=== PATIENT | female | born 1965 | race Caucasian/White ===

== ENCOUNTER 2023-09-20 15:42 | Outpatient (CLI) | payer MEDICAID, SELFPAY ==
--- NOTE | 2023-09-20 14:45 | DI.RAD_ITS ---
Exam(s) XR PELVIS AP EXAM: XR PELVIS AP CLINICAL HISTORY: right hip pain. TECHNIQUE: 2D digital imaging was performed. COMPARISON: CR XR HIP RT MIN 2V AND PELVIS from 02/01/2023 FINDINGS: BONES: No acute fracture is present. No bony destructive lesion is seen. JOINTS: No dislocation present. There advanced degenerative changes seen at the right hip with joint space narrowing and osteophytes. Subchondral sclerosis and cysts are also seen at the right hip. Mo derate degenerative changes are seen in the left hip. The sacroiliac joints and symphysis pubis are unremarkable. SOFT TISSUE: Normal. IMPRESSION: Advanced degenerative changes of the right hip. DATA REPOSITORY: RADIATION DOSE DELIVERED:
== END 2023-09-20 15:43 | disposition home or self-care (01) ==
LOC: DIORS 15:42
PROVIDERS: PCP Family Medicine; Visit Provider Physician Assistant
DX: M16.11 Unilateral primary osteoarthritis, right hip (principal)
CPT/HCPCS: 72170

== ENCOUNTER 2023-10-14 01:21 | Outpatient (CLI) | payer MEDICAID, SELFPAY ==
[2023-10-14 15:15] LABS: HCT 41.2 % (36.0-46.0); HGB 14.3 g/dL (11.2-15.7); MCH 32.4 pg (27.0-33.0); MCHC 34.7 % (32.0-36.0); MCV 93 fL (80-95); MPV 10.6 fL (8.0-11.0); Platelet Count 366 10^3/uL (130-400); RBC 4.41 10^6/uL (3.93-5.22); RDW 12.4 % (11.7-14.6); RDW-SD 42.7 fL; WBC 8.77 10^3/uL (4.4-10.8)
[2023-10-14 15:18] LABS: Anion Gap 9.6 mmol/L (3-11); BUN 11 mg/dL (7-18); CO2 28.4 mmol/L (21.0-32.0); CREATININE 0.9 mg/dL (0.55-1.02); Calcium 9.9 mg/dL (8.5-10.1); Chloride 104 mmol/L (98-107); Estimated GFR 73.64 (mL/min/1.73m2); Glucose 100 mg/dL (74-106); Potassium 4.2 mmol/L (3.5-5.1); Sodium 142 mmol/L (136-145)
== END 2023-10-14 01:22 | disposition home or self-care (01) ==
LOC: LBO 01:21
PROVIDERS: PCP Family Medicine; Visit Provider Student in an Organized Health Care Education/Training Program
DX: Z01.818 Encounter for other preprocedural examination
CPT/HCPCS: 36415; 80048; 85027

== ENCOUNTER 2023-10-27 05:56 | Day surgery (SDC) | payer MEDICAID, SELFPAY ==
[2023-10-27] VITALS (9 sets, daily range): BP systolic 68–146; BP diastolic 43–82; PULSE 60–77; RESP 16–28; TEMP 36.3–36.6; O2SAT 94–99; BMI 30.9
--- NOTE | 2023-10-27 06:28 | ANES.PREOP_ITS ---
General Info Date of Service Date Performed: 10/27/23 Height: 5 ft 9 in Weight: 95.1 kg Body Mass Index (BMI): 30.9 Surgical Procedure: Operation Date: 10/27/23 07:50 Proposed Procedure Side Surgeon p Hip Total Hip Anterior Right Ja Paige MD s Knee Injection- Depo Medrol Right Ja Paige MD Meds Allergies and Home Medications Allergies Allergy/AdvReac Type Severity Reaction Status Date / Time Penicillins Allergy Mild Itching Verified 10/27/23 06:16 Home Medication Medication Instructions Recorded albuterol sulfate 90 mcg/actuation 1 puff inhalation Q6H PRN 08/04/23 aerosol inhaler (Ventolin HFA) atorvastatin 40 mg tablet 40 mg PO DAILY 08/04/23 melatonin 10 mg tablet 10 mg PO HS PRN 08/04/23 oxybutynin chloride 5 mg tablet 5 mg PO DAILY 08/04/23 trazodone 100 mg tablet 200 mg PO QHS PRN 09/20/23 Current Visit Medications: Current Medications Generic Name Dose Route Start Last Admin Trade Name Freq PRN Reason Stop Dose Admin Acetaminophen 1,000 mg 10/27/23 06:00 Acetaminophen 500 Mg Tab PO 11/26/23 05:59 PREOP SHIRLEY Celecoxib 400 mg 10/27/23 06:00 Celecoxib 200 Mg Cap PO 11/26/23 05:59 PREOP SHIRLEY Tranexamic Acid 1,000 mg/ 60 mls @ 360 mls/hr 10/27/23 06:00 Sodium Chloride IV 11/26/23 05:59 PREOP SHIRLEY Ringer's Solution 1,000 mls @ 80 mls/hr 10/27/23 06:00 IV 11/25/23 23:59 INFUSION SHIRLEY Cefazolin Sodium/Dextrose 2 gm in 50 mls @ 100 mls/hr 10/27/23 06:00 Ancef Duplex IVPB 10/27/23 16:00 PREOP SHIRLEY IV Miscellaneous Supplies 1 each 10/27/23 06:00 Iv Access IV 11/25/23 23:59 DIRECTED SHIRLEY Sodium Chloride 0 ml 10/27/23 06:00 Normal Saline Flush 10 Ml Syr IV 11/25/23 23:59 PRN PRN Sodium Chloride 0 ml 10/27/23 06:00 Normal Saline 10 Ml Vial IJ 11/25/23 23:59 DIRECTED PRN Sterile Water 0 ml 10/27/23 06:00 Water,Injection,Sterile 10 Ml Vial IJ 11/25/23 23:59 DIRECTED PRN PFSH Active Problems Active Problems: Problem Status Onset Code Smoker F17.200 PTSD (post-traumatic stress disorder) F43.10 Prediabetes R73.03 HLD (hyperlipidemia) E78.5 WHIT (generalized anxiety disorder) F41.1 Degenerative joint disease of right knee M17.11 Degenerative joint disease of right hip M16.11 Medical History Medical History (Updated 10/25/23 @ 11:40 by Matheus Stanley) Hx of fracture of leg History of echocardiogram 06/02/19 Stress incontinence in female Seizure It's a weird warming/cooling sensation I'm blinking but I'm blind, and I get this warm sensation and i get this shaking sensation, and then it goes away, I'm completely coherent. Last one was over a year ago Major depressive disorder Chronic low back pain Cataract Surgical History Surgical History (Updated 10/25/23 @ 11:40 by Matheus Stanley) History of bladder surgery H/O cervical polypectomy 11/18/18 History of cataract surgery dos 05/27/2000 Tobacco Smoking/Tobacco Use Status: Current every day Tobacco Type: cigarettes Smoking packs per day: 0.75 Smoking cigarettes per day: 15.0 and e-cigarettes Alcohol Alcohol Intake: never Substance Use Substance use: Daily Substance use type: marijuana Vital Signs and Lab Results Vital Signs Most Recent Vital Signs in EMR: Most Recent Vital Signs Temp Pulse Resp BP Pulse Ox 36.6 C 74 16 146/81 H 99 10/27/23 06:18 10/27/23 06:18 10/27/23 06:18 10/27/23 06:18 10/27/23 06:18 Lab Results Blood Type / Crossmatch: No Data to Display Complete Blood Count: White Blood Count 8.77 10^3/uL (4.4-10.8) 10/14/23 14:54 Red Blood Count 4.41 10^6/uL (3.93-5.22) 10/14/23 14:54 Hemoglobin 14.3 g/dL (11.2-15.7) 10/14/23 14:54 Hematocrit 41.2 % (36.0-46.0) 10/14/23 14:54 Platelet Count 366 10^3/uL (130-400) 10/14/23 14:54 Complete Metabolic Panel: Sodium 142 mmol/L (136-145) 10/14/23 14:54 Potassium 4.2 mmol/L (3.5-5.1) 10/14/23 14:54 Chloride 104 mmol/L (98-107) 10/14/23 14:54 Carbon Dioxide 28.4 mmol/L (21.0-32.0) 10/14/23 14:54 BUN 11 mg/dL (7-18) 10/14/23 14:54 Creatinine 0.9 mg/dL (0.55-1.02) 10/14/23 14:54 Est GFR (CKD-EPI 2020) 73.64 (mL/min/1.73m2) 10/14/23 14:54 Calcium 9.9 mg/dL (8.5-10.1) 10/14/23 14:54 Glucose 100 mg/dL (74-106) 10/14/23 14:54 Liver Function Panel: No Data to Display Coagulation Panel: No Data to Display Cardiac Panel: No Data to Display Arterial Blood Gas: No Data to Display Venous Blood Gas: No Data to Display Pancreas Panel: No Data to Display Thyroid Panel: No Data to Display Infectious Disease: No Data to Display Blood Cultures: No Data to Display Toxicology Panel: No Data to Display Imaging and Studies Imaging and Studies Study information below may be from another EMR and interpreted by another provider. Please see original notes in EMR for more complete details. Echocardiogram Summary: echo 2019 mild LVH, EF 65-70%, some diastolic dysfunct ion, trace MR/TR. see chart for results. Anesthesia Assessment and Plan Anesthesia History Personal History: PONV Family History: No Family History of Anesthesia Complications Exercise Tolerance Exercise Tolerance: Metabolic Equivalents>4 Pertinent Negatives Pertinent Negatives: No Symptoms of GERD, No Major Cardiovascular Symptoms or Complaints, No Major Pulmonary Symptoms or Complaints and No History of CVA/TIA Cardiac & Pulmonary Exam Cardiac Exam: Normal S1/S2 Heart Sounds Pulmonary Exam: Clear Bilateral Breath Sounds Implantable Cardiac Device Does patient have a Pacemaker or an ICD?: No Airway Exam Known Difficult Airway: No Mallampati Class: 2 Mouth Opening: Normal (> 3cm) Thyromental Distance: Less than 3 cm Neck Range of Motion: Full ROM Neck Circumference: Normal Teeth Condition: Normal Dentition ASA Classification ASA Score: ASA 2 Emergency Case?: No NPO Status NPO Status: NPO Clears >2 hours, Solids >8 hours Anesthesia Plan Resuscitation Status: Full Code Anesthesia Technique: Spinal Anesthesia Airway Planned: Natural Airway Monitors Used: Standard Monitors
[2023-10-27] MEDS: Acetaminophen 500 MG TAB 1000 MG PO (06:58)
[2023-10-27] MEDS: Celecoxib 200 MG CAP 400 MG PO (06:58)
[2023-10-27] MEDS: Lactated Ringers 1,000 ML 80 ML IV (06:58)
--- NOTE | 2023-10-27 07:24 | W.PM.DS.N ---
Date of service: 10/27/23 Time of Service: 07:24 DS: Diagnosis Discharge Diagnosis (1) Degenerative joint disease of right knee: Status: Chronic (2) Degenerative joint disease of right hip: Status: Chronic Discharge Plan Disposition Patient Disposition: Home Condition: Good Discharge Details Reason For Visit: R THR, R Knee Injection Attending Provider: Ja Paige Primary Care Provider: GREGG RESTREPO Home Meds and New Rx's Prescriptions: New celecoxib 200 mg capsule 200 mg PO BID Qty: 60 0RF aspirin 81 mg tablet,delayed release (DR/EC) 81 mg PO BID Qty: 60 0RF acetaminophen 500 mg tablet 1,000 mg PO TID Qty: 90 3RF pantoprazole 40 mg tablet,delayed release (DR/EC) 40 mg PO DAILY Qty: 30 0RF dexamethasone 4 mg tablet 4 mg PO DAILY Qty: 2 0RF oxycodone 5 mg tablet 5 mg PO Q4H MDD 6 tabs PRN (Reason: pain) Qty: 20 0RF Continued melatonin 10 mg tablet 10 mg PO HS PRN oxybutynin chloride 5 mg tablet 5 mg PO DAILY atorvastatin 40 mg tablet 40 mg PO DAILY albuterol sulfate [Ventolin HFA] 90 mcg/actuation HFA aerosol inhaler 1 puff inhalation Q6H PRN trazodone 100 mg tablet 200 mg PO QHS PRN Discharge Instructions Additional Instructions: Total Hip Discharge Instructions Activity: The most important activity is to walk. You should try to take short walks a few times a day. You have no restrictions on movement or positioning, but do not try to force what you do. You will find some stiffness and weakness with hip flexion (lifting your knee). Do not try to strengthen this too early, continue to practice walking and stairs and this will come. - Outpatient physical therapy can be helpful to help return you to a normal gait and improve your flexibility and strength. This can start around 2 weeks. For some patients, it?s not necessary. Usually this is determined at the time of discharge or at the first post-operative visit. - You should wear the SEVEN hose on both legs for 2 weeks. Dressing: Keep the surgical dressing in place for at least one week. After the first week it may be removed and replace with light gauze and tape or nothing. It may get wet after 3 days but avoid soaking the dressing. If it gets wet, just lightly pat dry. It is important to always keep some gauze between skin folds, especially when you are sitting. Spend some time with the wound exposed when you are lying flat as the incision does wrinkle onto itself. Medications: - You should take Tylenol and an anti-inflammatory Celebrex as your primary pain control medications. If the Celebrex is too expensive or not covered, please call the office for another alternative (Advil/Ibuprofen or Naproxen/Aleve). - You have been prescribed a stronger pain medication Oxycodone for breakthrough pain, take as needed as prescribed. - You have also been prescribed a stomach acid reduction agent Pantoprozole to help reduce stomach acid and reflux. - You have also been prescribed Decadron to help with post-operative nausea and pain. You will take this for two days starting tomorrow. - You will be taking Aspirin 81mg twice a day for DVT prevention unless instructed otherwise. - If you have constipation you should take Colace or Miralax (both [id number]). It takes most people 3-4 days to have a bowel movement. Follow-up: 2 weeks If you have any acute concerns or questions, please do not hesitate to contact the office at [phone]. You may contact Dr. Paige with any questions after hours through the hospital at [phone] or on his cell phone at [phone]. Referrals: Ja Paige MD [ [facility] STAFF PHYSICIAN] - Equipment/Supplies: Walker Activity:: Activity as Tolerated Shower/Bathe:: 72 hours Diet:: As Tolerated DS: Summary Quality:SDOH Health Related Social Needs: No Data to Display DS: Data Vitals/I&O Vitals and I&O: Vital Signs Temperature 97.9 F 10/27/23 06:18 Pulse 74 10/27/23 06:18 Pulse Rhythm Regular 10/27/23 06:18 Respiratory Rate 16 10/27/23 06:18 Blood Pressure 146/81 H 10/27/23 06:18 Pulse Oximetry 99 10/27/23 06:18 Oxygen Delivery Method Room Air 10/27/23 06:18 Oxygen Flow Rate 0 10/27/23 06:18 Pain Level 1 10/27/23 06:18 Intake & Output 10/26/23 10/27/23 10/27/23 18:59 06:59 18:59 Weight 209 lb 10.554 oz PFSH All Active Problems (Updated 10/27/23 @ 07:25 by MELA Sepulveda) Smoker (Acute) PTSD (post-traumatic stress disorder) (Acute) Prediabetes (Acute) HLD (hyperlipidemia) (Acute) WHIT (generalized anxiety disorder) (Acute) Degenerative joint disease of right knee (Chronic) Injection: 10/27/2023 Degenerative joint disease of right hip (Chronic) Medical History (Updated 10/27/23 @ 07:25 by MELA Sepulveda) Hx of fracture of leg History of echocardiogram 06/02/19 Stress incontinence in female Seizure It's a weird warming/cooling sensation I'm blinking but I'm blind, and I get this warm sensation and i get this shaking sensation, and then it goes away, I'm completely coherent. Last one was over a year ago Major depressive disorder Chronic low back pain Cataract Surgical History (Updated 10/25/23 @ 11:40 by Matheus Stanley) History of bladder surgery H/O cervical polypectomy 11/18/18 History of cataract surgery dos 05/27/2000 Social History (Updated 10/14/23 @ 15:45 by MELA Sepulveda) Smoking/Tobacco Use Status: Current every day Tobacco Type: cigarettes Smoking packs per day: 0.75 Smoking cigarettes per day: 15.0 and e-cigarettes Smoking risk assessment performed?: Yes Alcohol Intake: never Drug use: Daily Substance use type: marijuana Housing: other Do you feel safe at home: Yes Additional Social history: lives alone
--- NOTE | 2023-10-27 07:27 | W.PM.DSUDISC ---
Date of service: 10/27/23 Time of Service: 07:28 Discharge Plan Disposition Patient Disposition: Home Condition: Good Discharge Details Reason For Visit: R THR, R Knee Injection Attending Provider: Ja Paige Primary Care Provider: GREGG RESTREPO Home Meds and New Rx's Prescriptions: New celecoxib 200 mg capsule 200 mg PO BID Qty: 60 0RF aspirin 81 mg tablet,delayed release (DR/EC) 81 mg PO BID Qty: 60 0RF acetaminophen 500 mg tablet 1,000 mg PO TID Qty: 90 3RF pantoprazole 40 mg tablet,delayed release (DR/EC) 40 mg PO DAILY Qty: 30 0RF dexamethasone 4 mg tablet 4 mg PO DAILY Qty: 2 0RF oxycodone 5 mg tablet 5 mg PO Q4H MDD 6 tabs PRN (Reason: pain) Qty: 20 0RF Continued melatonin 10 mg tablet 10 mg PO HS PRN oxybutynin chloride 5 mg tablet 5 mg PO DAILY atorvastatin 40 mg tablet 40 mg PO DAILY albuterol sulfate [Ventolin HFA] 90 mcg/actuation HFA aerosol inhaler 1 puff inhalation Q6H PRN trazodone 100 mg tablet 200 mg PO QHS PRN Discharge Instructions Additional Instructions: Total Hip Discharge Instructions Activity: The most important activity is to walk. You should try to take short walks a few times a day. You have no restrictions on movement or positioning, but do not try to force what you do. You will find some stiffness and weakness with hip flexion (lifting your knee). Do not try to strengthen this too early, continue to practice walking and stairs and this will come. - Outpatient physical therapy can be helpful to help return you to a normal gait and improve your flexibility and strength. This can start around 2 weeks. For some patients, it?s not necessary. Usually this is determined at the time of discharge or at the first post-operative visit. - You should wear the SEVEN hose on both legs for 2 weeks. Dressing: Keep the surgical dressing in place for at least one week. After the first week it may be removed and replace with light gauze and tape or nothing. It may get wet after 3 days but avoid soaking the dressing. If it gets wet, just lightly pat dry. It is important to always keep some gauze between skin folds, especially when you are sitting. Spend some time with the wound exposed when you are lying flat as the incision does wrinkle onto itself. Medications: - You should take Tylenol and an anti-inflammatory Celebrex as your primary pain control medications. If the Celebrex is too expensive or not covered, please call the office for another alternative (Advil/Ibuprofen or Naproxen/Aleve). - You have been prescribed a stronger pain medication Oxycodone for breakthrough pain, take as needed as prescribed. - You have also been prescribed a stomach acid reduction agent Pantoprozole to help reduce stomach acid and reflux. - You have also been prescribed Decadron to help with post-operative nausea and pain. You will take this for two days starting tomorrow. - You will be taking Aspirin 81mg twice a day for DVT prevention unless instructed otherwise. - If you have constipation you should take Colace or Miralax (both [id number]-vigpexm). It takes most people 3-4 days to have a bowel movement. Follow-up: 2 weeks If you have any acute concerns or questions, please do not hesitate to contact the office at [phone]. You may contact Dr. Paige with any questions after hours through the hospital at [phone] or on his cell phone at [phone]. Referrals: Ja Paige MD [ [facility] STAFF PHYSICIAN] - Equipment/Supplies: Walker Activity:: Activity as Tolerated Shower/Bathe:: 72 hours Diet:: As Tolerated DS: Diagnosis Discharge Diagnosis (1) Degenerative joint disease of right knee: Status: Chronic (2) Degenerative joint disease of right hip: Status: Chronic
[2023-10-27] MEDS: ceFAZolin 2 GM/50 ML BAG IVPB (09:45)
[2023-10-27] MEDS: methylPREDNISolone ACETATE 80 MG/ML VIAL (10:02)
[2023-10-27] MEDS: Bupivacaine 0.25% Pres-Free 10 ML VIAL (10:02)
--- NOTE | 2023-10-27 11:05 | DI.RAD_ITS ---
Exam(s) XR HIP RT IN OR EXAM: XR HIP RT IN OR CLINICAL HISTORY: Degenerative joint disease of right hip. TECHNIQUE: 2D and realtime digital imaging was performed. COMPARISON: CR XR PELVIS AP from 09/20/2023 FINDINGS: Hard copy image shows placement a hip prosthesis. The alignment appears satisfactory. Please see procedure note for details. Fluoro time: 26.3seconds RADIATION DOSE DELIVERED: Ka,r=3.93 mGy
--- NOTE | 2023-10-27 11:09 | W.PM.OP ---
Date of service: 10/27/23 Time of Service: 10:15 Operative Note Operative Note DATE OF PROCEDURE: 10/27/23 PRE-OP DIAGNOSIS: Right Hip Arthritis Right Knee Arthritis POST-OP DIAGNOSIS: same PROCEDURE: Right Anterior Total Hip Arthroplasty with Intraoperative Navigation Right Knee Intra-articular Injection SURGEON: Ja Paige SHIPPING CHECKER: Luisito Purvis ANESTHESIA TYPE: Spinal Refer to Anesthesia Record ESTIMATED BLOOD LOSS: 100 PATHOLOGY: none sent TOURNIQUET TIME: 0 COMPLICATIONS: None Patient was transported to: PACU Patient's condition: stable Implants: 1. Depuy Islip Acetabular Component, 48mm 2. Depuy Acetabular Liner, [id number] 3. Depuy Actis Standard Collared Femoral Stem, Size 6 4. Depuy Altrx Ceramic Femoral Head, Size 32+5mm Indications: I have seen Chela in clinic for symptoms of hip arthritis, confirmed with radiographic findings. She has exhausted nonoperative methods and was having significant limitations in daily function and desired better function and less pain. I discussed the technical details of a hip replacement. I explained the risks of the procedure to include, but not limited to, bleeding, infection, pain, stiffness, fracture, damage to nerves and vessels, damage to muscles and tendons, loosening, instability, leg length inequality, need for repeat procedure, blood clot and cardiopulmonary demise. Despite these risks, Chela elected to proceed. Findings: There was significant signs of arthritis throughout the hip. Procedure Description: Chela was greeted in the preoperative holding area where the correct side was identified and marked. The consent was reviewed with the patient and signed. The history and physical was updated. All questions were answered. She was taken back to the operating room. A spinal anesthestic was then administered. The feet were wrapped with cast padding and Coban and then placed into the boot liners and then into the boots. Care was taken to protect the skin and make sure the heels were fully down and the boots were stable. The patient was then positioned onto the HANA table. Both legs were held in a neutral position. SCDs were applied. The patient was then slid down onto a peroneal post. Prophylactic antibiotics in the form of Cefazolin were administered. 1g of Tranxemic Acid was given intravenously within 30 minutes of incision. A timeout to confirm correct identity, side and site, procedure, allergies, anesthesia, and medical concerns was performed. The right knee was then addressed first. The superolateral soft spot was identified and marked on the skin. The skin was prepped with alcohol. I then injected 8 cc of 0.25% bupivacaine along with 80 mg of Depo-Medrol into the knee without difficulty. A Band-Aid was applied. Then, the right leg was then prepped with Chloraprep and draped in a standard fashion. A second prep with Chloraprep was performed prior to placement of a shower-curtain type drape with Iodine impregnated skin protection. An obliquely oriented incision was made starting lateral to the ASIS and running distal over the Tensor Fascia Zoë (TFL) muscle belly toward the fibular head, approximately 10cm. The skin and soft tissue was dissected sharply, through Larissa?s fascia, and to the fascia of the TFL. With the fascia and superior border of the IT band identified, the fascia was incised with a new knife just above any perforators from the IT band. The TFL muscle belly was bluntly dissected away from the fascia and moved laterally. The fat between TFL and rectus was identified to ensure the dissection was not within the TFL. Blunt dissection created space between abductors and the capsule and retractor was placed over the lateral femoral neck. The fibers of the rectus femoris tendon were identified and these were freed from the anterior capsule. A second cobra retractor was placed around the medial femoral neck. The TFL was further retracted laterally to show the deep fascia. Careful dissection through this layer identified three main crossing vessels of the lateral femoral circumflex. These were cauterized in multiple locations and then cut without any noticeable bleeding. The TFL was further released bluntly from the deep fascia to expose anterior hip capsule and fat The Izaiah orthopaedic retractor was then placed beneath the TFL and against sartorius and medial soft tissues to protect and retract the soft tissues. A T-capsulotomy was then performed starting at the superior lateral acetabulum and moving distally to the intertrochanteric ridge. These capsular flaps were tagged with a No. 1 Ethibond and elevated from within. The capsular flaps were released to the shoulder of the lateral neck and to the lesser trochanter to give excellent visualization of the proximal femur. A neck osteotomy was performed using an oscillating saw based on preoperative templates. This cut started in the shoulder and of the lateral neck and exited medially. The saw was at all times directed medially to avoid injury to the greater trochanter. Gross traction was applied to the leg and the osteotomy opened. The femoral head was removed with a corkscrew, making sure to protect the TFL on its exit. Traction was released after head removal. This was measured on the back table to determine the starting reamer size. Portions of the rectus obscuring visualization were minimally elevated off the superior acetabulum. An anterior retractor was placed over the anterior wall between capsule and labrum and attached to the Gripper retraction system. The femur was rotated to 90 degrees and medial capsule was fully released until the lesser trochanter was palpable and visible; the femur was returned to 30 degrees. A posterior retractor was placed similarly between capsule and labrum. This provided excellent visualization. The contents of the cotyloid fossa were removed with electrocautery and the labrum was removed with a knife. There was a notable floor osteophyte. There was significant chondromalacia of the superior acetabulum. Acetabular reaming began with a 44mm reamer. This first reaming was directed anterior to posterior and medial to get down to the true floor. This was inspected and reamed until the true floor was reached. The anterior retractor was then released and entry and exit was provided by traction on the capsular flaps. I then reamed sequentially up to a 48mm reamer where good fit was obtained. The larger reamers were oriented based on anatomical reference of the anterior and lateral arrington to ensure proper abduction and anteversion. Positioning and size was confirmed with the fluoroscopy. A 48mm Depuy Islip acetabular component was selected. The acetabulum was reamed around the periphery with the selected acetabular size to prevent a rim fit. The deep tissues were irrigated. The acetabular component was then impacted in a position of about 40-45 degrees of abduction and 15-20 degrees of anteversion, using the patient?s anatomy as the ultimate landmark. Fluoroscopy was used to confirm this. There was excellent benzol operator of the acetabular component and the inserting handle was removed. The acetabular liner, Depuy [id number] polyethylene liner, was inserted and lined up with the tines of the acetabular component. There was no soft tissue interposition. The liner was then impacted into position and confirmed to be well-seated. A portion of the dora-articular cocktail was then injected around the acetabulum into the capsule and periosteum. This cocktail consisted of 123mg of Ropivacaine, 0.25mg of Epinephrine, 0.04mg of Clonidine, and 15mg of Ketorolac, diluted to 50cc. The leg was rotated to 120 degrees. Any remaining medial capsule was released until the lesser trochanter was easily palpable. A retractor was placed medially. The lateral capsule was further released into the shoulder to allow access to the greater trochanter. A Renteria retractor was placed over the greater trochanter which allowed the trochanter to flip in front of the capsule for excellent exposure. The leg was brought down into maximal extension and 20 degrees of adduction while ensuring there was no impingement on the acetabulum. Any remnant capsule within the trochanter was released. Piriformis and obturator externis were identified and protected. There was excellent access to the proximal femur. The lateral neck remnant was removed with a rongeur. A blunt canal probe was used to identify the canal and trajectory for later broaching. A box osteotome initiated the broach course. A small curved rasp and a curved curette were used to work laterally. Broaching then began with a starter Actis broach. This was inserted manually around the trochanter and into the canal before mallet blows. The broach was seated to the neck cut level based on the neck cut and the preoperative template. Sequential broaching was continued with the WishLinkse pneumatic broaching device until a tight fit was obtained with good rotational control of the femur. A trial standard neck was inserted along with a +1 trial head. The leg was brought out of extension and adduction and then reduced with traction and internal rotation. The leg was stable anteriorly in a position of 30 degrees of extension and 90 degrees of external rotation. Fluoroscopy was used to ensure there was no fracture and the stem was seated well. Leg lengths were checked with an AP pelvis and pelvic reference points. [employer] navigation system was used to confirm appropriate positioning and leg length and offset. Once content with the desired offset and leg lengths, the leg was brought back into extension, external rotation and adduction. The periosteum and surrounding tissue was injected with remaining portion of the dora-articular cocktail. The proximal femur was irrigated as well as the deep tissues. The 3CIuy PurposeEnergyis standard collared stem, size 6, was then manually inserted into the proximal femur making sure to control rotation. It was then malleted into position with light blows, giving breaks to allow bone expansion and decrease risk of fracture. The selected Depuy Altrx Ceramic Head, size 32+5mm, was then placed onto the clean and dry trunnion and secured with impaction onto the tapered fit. The leg was brought back out of extension and adduction and reduced with traction and internal rotation. Stability was confirmed with no shuck at 90 degrees of external rotation and 30 degrees of extension. No impingement through range of motion arc. Final x-ray images were obtained with fluoroscopy to confirm adequate positioning and no intraoperative fracture. The deep tissues were thoroughly irrigated with Surgiphor, betadine solution. This was allowed to sit in the wound for 3 minutes before being thoroughly irrigated out with normal saline. The capsule was then reapproximated with the previously placed Ethibond sutures. The TFL fascia was finally closed with a No. 2 Stratafix, barbed suture. Deep tissues were then reapproximated with 0 Vicryl and a running 2-0 Vicryl. The skin was closed with a running 4-0 Monocryl in a subcuticular fashion. This was reinforced with skin glue. A Mepilex silver dressing was applied. At the end of the case, all counts were correct. Chela was transferred to the hospital bed without difficulty and suffering no apparent complication. Chela has a good prognosis. Physical therapy will start today and without restrictions, weight-bearing as tolerated. Aspirin 81mg BID will be used for DVT prophylaxis.
[2023-10-27] MEDS: fentaNYL 100 MCG/2 ML VIAL IVP ×2 (11:54→12:01)
--- NOTE | 2023-10-27 12:55 | PT.INIE ---
PT Notes Visit Reasons: R THR, R Knee Injection Physical Therapy Day Surgery Initial Evaluation Date: 10/27/2023 Referring Doctor: MELA Sepulveda PT Orders: PT CONSULT: S/P ortho Surgery Precautions: WBAT on the R LE with AD. Patient Profile/Admitting Diagnosis: Chela is a 58-year-old female with degenerative joint disease of the right hip and status post right total anterior hip arthroplasty on postoperative day 0 PMHX: Medical History (Updated 09/22/23 @ 13:32 by Sharmaine Menezes RN) History of echocardiogram 06/02/19Stress incontinence in female Seizure Major depressive disorder Chronic low back pain Cataract Surgical History (Updated 09/22/23 @ 13:32 by Sharmaine Menezes RN) H/O cervical polypectomy 11/18/18 History of cataract surgery dos 05/27/2000 Social History/Home Situation: Lives alone in a private in a private home with 3 steps to enter. Daughter will provide support as she recovers. Works as a [employer]. Independent aspects of ADLs prior to surgery. Equipment Owned/DME: [employer] FWW, patient given a new FWW for safe use at home Subjective: Pleasant and highly motivated. Reported stinging sensation about 3-4/10 on the right front of her hip and thigh increased with movement but minimally limited her ability to complete mobility assessment. Denied headache, chest pain, and lightheadedness throughout session. Objective: General Observation: Mepilex Ag over surgical incision. TDS to be legs. Mental Status: A and O x 4 as above Pain: above ROM: Right Lower Extremity: Hip flexion WFL. Hip abduction WFL. Knee flexion WFL. Ankle dorsiflexion WFL. Ankle plantarflexion WFL. Left Lower Extremity: Hip flexion WFL. Hip abduction WFL. Knee flexion WFL. Ankle dorsiflexion WFL. Ankle plantarflexion WFL. Strength: Right Lower Extremity: Hip flexors 5/5. Hip abductors 5/5. Knee flexors 5/5. Knee extensors 5/5. Ankle dorsiflexors 5/5. Ankle plantarflexors 5/5. Left Lower Extremity:Hip flexors 4/5. Hip abductors 4/5. Knee flexors 5/5. Knee extensors 4/5. Ankle dorsiflexors 5/5. Ankle plantarflexors 5/5. Sensation: Intact tested pain and light pressure in BLE Bed Mobility/Transfers: Minimal cueing provided for use of B hands as needed for support, movement sequence, AD management, and posture to reduce fall risk and minimize pain report Supine to sit standby assist Sit to stand standby assist with FWW Stand to sit stand bya assist Bed to chair stand by assist Gait: Facilitated safe and correct performance of level surface ambulation covering a distance of 150 feet using front wheeled walker with reciprocal step through heel-toe gait pattern requiring only standby assist with minimal cueing provided for movement sequence, AD management, and posture to reduce fall risk and minimize pain report. Stairs: Guided patient with safe and correct negotiation of 6 x 4 inch steps and 4 x 6 inch steps while holding onto bilateral rails with step to gait pattern with minimal verbal cueing provided for increased bending at the right hip and knee during each ascent, movement sequence, and posture to reduce fall risk and minimize pain report. Balance: Static Sitting: Normal Dynamic Sitting: Normal Static Standing: Fair Dynamic Standing: fair Special Tests: Mobility Limitations Standardized Measure [facility] 6 clicks Basic Mobility Inpatient Short Form: Raw Score: 24 CMS Score: 0% deficit Informed Consent/Education: Patient instructed in purpose of PT consult. Packet containing KATEY exercise protocol has been given to patient. Education and training on initial set of exercises that can be done at home have been completed with patient. Trained patient with correct performance of exercises below to maximize motor control, joint flexibility, soft tissue extensibility of the R hip musculature to facilitate return to independent functional mobility performance. Access Code: [email or web address] URL: [email or web address] Date: 10/26/2023 Prepared by: Millicent Keene Exercises - Gluteal Sets - 1 x daily - 7 x weekly - 1 sets - 10 reps - 5 hold - Supine Heel Slide - 1 x daily - 7 x weekly - 1 sets - 10 reps - 5 hold - Supine Ankle Pumps - 1 x daily - 7 x weekly - 1 sets - 10 reps - 5 hold - Seated March - 1 x daily - 7 x weekly - 1 sets - 10 reps - 5 hold - Seated Long Arc Quad - 1 x daily - 7 x weekly - 1 sets - 10 reps - 5 hold Assessment: Chela requires the use of a front wheeled walker for all mobility ADL performance to maximize independence and reduce fall risk. Patient presents with clinical signs and symptoms consistent with current/admitting diagnoses that have resulted to mobility limitations, gait instability, generalized weakness, and impairment of motor control as demonstrated by the following impairment level findings: 1. Decreased strength to R hip major muscle groups 2. Impaired standing balance 3. Limitation of joint range of motion in R hip 4. Impaired muscle performance in R hip Impairments are contributing to the following functional limitations: 1. Inability to safely ambulate without assistive device 2. Increase completion time for mobility ADL performance 3. Increased fall risk Patient is assessed as a 04602 moderate complexity based on the following: History: 58-year-old female with impairment level findings, functional limitations, and past medical history as indicated above Examination: Demonstrable impairment in strength, balance, and mobility level with underlying impairments and functional limitations as documented above Presentation: Evolving Decision Makin moderate complexity Goals: N/A. PT evaluation and 1-2 treatment sessions only for functional mobility training using recommended AD and for HEP instruction. Plan of Care/Treatment Plan: N/A. PT evaluation and 1-2 treatment session only for functional mobility training using recommended AD and for HEP instruction. DISCHARGE RECOMMENDATIONS: Home when medically cleared by orthopedic surgeon. Recommend outpatient PT services in order to optimize functional mobility outcomes and facilitate return to independent community ambulation without an assistive device. TREATMENT CODE/TIME: 17131 x 26 minutes for 1 unit (12:55-13:21) Thank you for the opportunity to participate in the care of this patient. Please sign an return this page within 30 days if you agree with the above POC. Thank you! Physician Signature Date [facility] Thank you for the opportunity to participate in the care of this patient. Millicent Keene PT, DPT, CLT [facility] [place], [place]
--- NOTE | 2023-10-27 13:19 | W.ANESPOSTOP ---
Postoperative Evaluation Date, Time and Location Date Performed: 10/27/23 Time Performed: 13:19 Patient Location: Day Surgery Unit Vital Signs Most Recent Imported Vital Signs: Most Recent Vital Signs Temp Pulse Resp BP Pulse Ox 36.4 C L 68 16 136/82 96 10/27/23 12:41 10/27/23 12:41 10/27/23 12:41 10/27/23 12:41 10/27/23 12:41 Pain Score Most Recent Pain Score: Most Recent Pain Score Pain Level 1 10/27/23 12:41 Assessment Mental Status: Awake (Alert & Oriented to Patient Baseline) Airway and Respiratory Function: Patent airway with normal (patient baseline) respiratory exam Cardiovascular Function: Hemodynamically Stable Hydration Status: Adequately Hydrated Nausea & Vomiting: No Nausea or Vomiting Pain: Pain is tolerable per patient Peripheral Nerve Block: Patient did not receive a nerve block
== END 2023-10-27 14:50 | disposition home or self-care (01) ==
PROVIDERS: PCP Family Medicine; Visit Provider Student in an Organized Health Care Education/Training Program
PROC: (CPT 27130; principal; 2023-10-27 09:30)
PROC: (CPT 27130; 2023-10-27 09:30)
DX: M16.11 Unilateral primary osteoarthritis, right hip; M17.11 Unilateral primary osteoarthritis, right knee; F17.210 Nicotine dependence, cigarettes, uncomplicated; R73.03 Prediabetes; E78.5 Hyperlipidemia, unspecified; F41.1 Generalized anxiety disorder
CPT/HCPCS: 27130; 20985; 20610; 97162; 73501; C1776; J0665; J0690; J1040; J1100; J2001; J2250; J2401; J2405; J2704; J3010

== ENCOUNTER 2023-11-11 11:55 | Outpatient (CLI) | payer MEDICAID, SELFPAY ==
--- NOTE | 2023-11-11 11:30 | DI.RAD_ITS ---
Exam(s) XR HIP RT COMPLETE AP PELVIS EXAM: XR HIP RT COMPLETE AP PELVIS CLINICAL HISTORY: 1ST POST OP S/P R KATEY. TECHNIQUE: 2D digital imaging was performed. Two views COMPARISON: CR XR PELVIS AP from 09/20/2023 FINDINGS: BONES: No acute fracture is present. No bony destructive lesion is seen. JOINTS: No dislocation present. No change in appearance of right hip prosthesis. Moderate degenera tive changes are again noted in the left hip. SOFT TISSUE: Normal. IMPRESSION: No acute abnormality. DATA REPOSITORY: RADIATION DOSE DELIVERED:
== END 2023-11-11 11:56 | disposition home or self-care (01) ==
LOC: DIORS 11:55
PROVIDERS: PCP Family Medicine; Visit Provider Student in an Organized Health Care Education/Training Program
DX: Z96.641 Presence of right artificial hip joint (principal); Z47.1 Aftercare following joint replacement surgery
CPT/HCPCS: 73502

== ENCOUNTER 2024-10-09 15:23 | Outpatient (CLI) | payer MEDICAID, SELFPAY ==
--- NOTE | 2024-10-09 14:00 | DI.RAD_ITS ---
Exam(s) XR KNEE RT 4V AP,LAT,CAMILO,PAT EXAM: XR KNEE RT 4V AP,LAT,CAMILO,PAT CLINICAL HISTORY: right knee DJD. TECHNIQUE: 2D digital imaging was performed. COMPARISON: No exams were available for comparison FINDINGS: Four views No evidence of fracture but there is a joint effusion noted. There is advanced narrowing of the lateral aspect of the patellofemoral compartment. Mild narrowing of the medial compartment. In addition, there is a small loose intra-articular body evident in the m edial compartment measuring 3 x 2 mm. Lateral compartment appears unremarkable. Bone density normal. No significant osseous lesions. IMPRESSION: Degenerative changes as above. There is also a small loose intra-articular body in the medial compar tment. There is also a joint effusion evident in the suprapatellar bursa DATA REPOSITORY: RADIATION DOSE DELIVERED:
--- NOTE | 2024-10-09 14:30 | DI.RAD_ITS ---
Exam(s) XR SHOULDER RT COMPLETE 2+V EXAM: XR SHOULDER RT COMPLETE 2+V CLINICAL HISTORY: eval R shoulder pain. TECHNIQUE: 2D digital imaging was performed. COMPARISON: No exams were available for comparison FINDINGS: Two views No evidence of fracture or dislocation nor abnormal soft tissue calcifications. The subacromial spac e appears unremarkable. There are no obvious degenerative changes in the glenohumeral joint. Mild d egenerative changes evident in the AC joint. Bone density is normal. There are no osseous lesions. IMPRESSION: No significant osseous findings in the shoulder. DATA REPOSITORY: RADIATION DOSE DELIVERED:
== END 2024-10-09 15:24 | disposition home or self-care (01) ==
LOC: DIORS 15:23
PROVIDERS: PCP Family Medicine; Visit Provider Physician Assistant
DX: M17.11 Unilateral primary osteoarthritis, right knee (principal); M25.511 Pain in right shoulder
CPT/HCPCS: 73030; 73564

== ENCOUNTER 2024-12-04 00:55 | Outpatient (CLI) | payer MEDICAID, SELFPAY ==
--- NOTE | 2024-12-04 07:15 | DI.MRI_ITS ---
Exam(s) MR UPPER JOINT RT WO EXAM: MR UPPER JOINT RT WO CLINICAL HISTORY: ? RTC TEAR,BURSITIS RT SHOULDER,TENDONITIS BICEPS BRACHI,M75.51,M75.21. TECHNIQUE: Multiplanar multisequence MRI was performed. COMPARISON: Plain films 09 October 2024 FINDINGS: BONES: There is no fracture or contusion pattern. Tiny cyst in greater tuberosity likely degenerati ve. Spurring at the tip of the acromion. JOINTS:The acromioclavicular joint shows minimal degenerative changes. No significant inferior spurr ing. The glenohumeral joint is normal. TENDONS: Supraspinatus: Small amount of intermediate signal distally consistent with tendinosis. Infraspinatus: Unremarkable. Subscapularis: Unremarkable. Teres Minor: Unremarkable. Biceps and [place]: Unremarkable. MUSCLES: Unremarkable. GLENOID LABRUM: Unremarkable on this noncontrast examination. SOFT TISSUES: Unremarkable. BURSAE: Subacromial and subdeltoid bursae shows a minimal amount of fluid. Minimal amount of fluid in the subcoracoid bursa. IMPRESSION: Mild amount of fluid in the subacromial subdeltoid bursa could indicate bursitis. Mild supraspinatus tendinosis. Mild degenerative changes of the AC joint. No abnormality identified of the biceps tendon. DATA REPOSITORY:
== END 2024-12-04 01:15 ==
LOC: DI 00:56
PROVIDERS: PCP Family Medicine; Visit Provider Student in an Organized Health Care Education/Training Program
DX: M75.21 Bicipital tendinitis, right shoulder (principal); M75.51 Bursitis of right shoulder
CPT/HCPCS: 73221

== ENCOUNTER 2025-07-30 14:18 | Outpatient (CLI) | payer MEDICARE, MEDICAID, SELFPAY ==
--- NOTE | 2025-07-30 13:45 | DI.RAD_ITS ---
Exam(s) XR STANDING ALIGNMENT EXAM: XR STANDING ALIGNMENT CLINICAL HISTORY: DJD R KNEE. TECHNIQUE: 2D digital imaging was performed. COMPARISON: CR XR KNEE RT 4V AP,LAT,CAMILO,PAT from 10/09/2024 FINDINGS: 3 views Mild degenerative changes in the medial compartments of both knees. There is a subtle deformity in the proximal diaphysis of the left fibula which is probably a healed oblique fracture site at this level. No significant osseous lesions. A right hip prosthesis is noted. There are mild-moderate degenerative changes in the left hip. Ankles appear unremarkable. No significant osseous lesions. IMPRESSION: Right hip prosthesis. Moderate degenerative changes left hip. Mild degenerative changes medial compartments of both knees. DATA REPOSITORY: RADIATION DOSE DELIVERED:
== END 2025-07-30 14:19 | disposition home or self-care (01) ==
LOC: DIORS 14:18
PROVIDERS: PCP Family Medicine; Visit Provider Physician Assistant
DX: Z01.818 Encounter for other preprocedural examination (principal); M17.11 Unilateral primary osteoarthritis, right knee
CPT/HCPCS: 99024; 77073

== ENCOUNTER 2025-08-08 06:31 | Day surgery (SDC) | payer MEDICARE, MEDICAID, SELFPAY ==
[2025-08-08] VITALS (20 sets, daily range): BP systolic 91–186; BP diastolic 50–103; PULSE 62–76; RESP 14–27; TEMP 36.2–36.6; O2SAT 92–99; BMI 32.3
[2025-08-08] MEDS: Acetaminophen 500 MG TAB 1000 MG PO (06:20)
[2025-08-08] MEDS: Celecoxib 200 MG CAP 400 MG PO (06:20)
[2025-08-08] MEDS: Gabapentin 300 MG CAP PO (06:20)
[2025-08-08] MEDS: Lactated Ringers 1,000 ML 80 ML IV (06:45)
--- NOTE | 2025-08-08 07:08 | W.ANESPRE ---
General Info Date of Service Date Performed: 08/08/25 Height: 5 ft 9 in Weight: 99.5 kg Body Mass Index (BMI): 32.3 Surgical Procedure: Operation Date: 08/08/25 07:40 Proposed Procedure Side Surgeon p Knee Total Arthroplasty Right Ja Paige MD Meds Allergies and Home Medications Allergies Allergy/AdvReac Type Severity Reaction Status Date / Time Penicillins Allergy Mild Itching Verified 08/08/25 06:17 Home Medication ?Medication ?Instructions ?Recorded albuterol sulfate 90 mcg/actuation 1 puff inhalation Q6H PRN 08/04/23 aerosol inhaler (Ventolin HFA) oxybutynin chloride 5 mg tablet 5 mg PO DAILY 08/04/23 atorvastatin 40 mg tablet (Lipitor) 40 mg PO DAILY 07/30/25 cetirizine 10 mg capsule (Zyrtec) 10 mg PO DAILY PRN 07/30/25 Current Visit Medications: Current Medications Generic Name Dose Route Start Last Admin Trade Name Freq PRN Reason Stop Dose Admin Acetaminophen 1,000 mg 08/08/25 06:00 08/08/25 06:20 Acetaminophen 500 Mg Tab PO 08/08/25 23:59 1,000 mg PREOP SHIRLEY Administration Celecoxib 400 mg 08/08/25 06:00 08/08/25 06:20 Celecoxib 200 Mg Cap PO 08/08/25 23:59 400 mg PREOP SHIRLEY Administration Gabapentin 300 mg 08/08/25 06:00 08/08/25 06:20 Gabapentin 300 Mg Cap PO 08/08/25 23:59 300 mg PREOP SHIRLEY Administration Ringer's Solution 1,000 mls @ 80 mls/hr 08/08/25 06:00 08/08/25 06:45 IV 08/08/25 23:59 80 mls/hr INFUSION SHIRLEY Administration Cefazolin Sodium/Dextrose 2 gm in 50 mls @ 100 mls/hr 08/08/25 06:00 Ancef Duplex IVPB 08/08/25 23:59 PREOP SHIRLEY Tranexamic Acid/Sodium Chloride 1,000 mg in 100 mls @ 600 mls/hr 08/08/25 06:00 IVPB 08/08/25 23:59 PREOP SHIRLEY Sodium Chloride 0 ml 08/08/25 06:00 Normal Saline Flush 10 Ml Syr IV 08/08/25 23:59 PRN PRN Sodium Chloride 0 ml 08/08/25 06:00 Normal Saline 10 Ml Vial IJ 08/08/25 23:59 DIRECTED PRN Sterile Water 0 ml 08/08/25 06:00 Water,Injection,Sterile 10 Ml Vial IJ 08/08/25 23:59 DIRECTED PRN PFSH Active Problems Active Problems: Problem Status Onset Code Tendonitis of long head of biceps brachii of right shoulder Acute M75.21 Bursitis of right shoulder Acute M75.51 Trochanteric bursitis, left hip Acute M70.62 Degenerative joint disease of left hip Chronic M16.12 History of total right hip replacement Acute 10/27/23 Z96.641 Smoker Acute F17.200 PTSD (post-traumatic stress disorder) Acute F43.10 Prediabetes Acute R73.03 HLD (hyperlipidemia) Acute E78.5 WHIT (generalized anxiety disorder) Acute F41.1 Degenerative joint disease of right knee Chronic M17.11 Medical History Medical History Hx of fracture of leg History of echocardiogram 06/02/19 Stress incontinence in female Seizure It's a weird warming/cooling sensation I'm blinking but I'm blind, and I get this warm sensation and i get this shaking sensation, and then it goes away, I'm completely coherent. Last one was 8 months ago Major depressive disorder Chronic low back pain Cataract Surgical History Surgical History History of bladder surgery H/O cervical polypectomy 11/18/18 History of cataract surgery dos 05/27/2000 Tobacco Smoking/Tobacco Use Status: Current every day Tobacco Type: cigarettes Smoking packs per day: 0.75 Smoking cigarettes per day: 15.0 and e-cigarettes Alcohol Alcohol Intake: never Substance Use Substance use: Occasionally Substance use type: marijuana Details: use in last 24hrs Vital Signs and Lab Results Vital Signs Most Recent Vital Signs in EMR: Most Recent Vital Signs Temp Pulse Resp BP Pulse Ox 36.4 C L 76 16 186/103 H 98 08/08/25 06:13 08/08/25 06:13 08/08/25 06:13 08/08/25 06:13 08/08/25 06:13 Imaging and Studies Imaging and Studies Study information below may be from another EMR and interpreted by another provider. Please see original notes in EMR for more complete details. Echocardiogram Summary: echo 2019 mild LVH, EF 65-70%, some diastolic dysfunction, trace MR/TR. see chart for results. Anesthesia Assessment and Plan Anesthesia History Personal History: PONV Family History: Family History Unknown Exercise Tolerance Exercise Tolerance: Metabolic Equivalents>4 Pertinent Negatives Pertinent Negatives: No Symptoms of GERD and No Major Pulmonary Symptoms or Complaints Cardiac & Pulmonary Exam Cardiac Exam: Normal S1/S2 Heart Sounds Pulmonary Exam: Clear Bilateral Breath Sounds Implantable Cardiac Device Does patient have a Pacemaker or an ICD?: No Airway Exam Known Difficult Airway: No Mallampati Class: 2 Mouth Opening: Normal (> 3cm) Thyromental Distance: Less than 3 cm Neck Range of Motion: Full ROM Neck Circumference: Normal Teeth Condition: Normal Dentition ASA Classification ASA Score: ASA 2 Emergency Case?: No NPO Status NPO Status: NPO Clears >2 hours, Solids >8 hours Anesthesia Plan Resuscitation Status: Full Code Anesthesia Technique: Spinal Anesthesia Airway Planned: Natural Airway Pain Management: Surgeon and patient request nerve block Monitors Used: Standard Monitors and SedLine
--- NOTE | 2025-08-08 07:23 | W.PM.DSUDISC ---
Date of service: 08/08/25 Discharge Plan Disposition Patient Disposition: Home Condition: Good Discharge Details Reason For Visit: R TKR Attending Provider: Ja Paige Primary Care Provider: GREGG RESTREPO Home Meds and New Rx's Prescriptions: New celecoxib 200 mg capsule 200 mg PO BID Qty: 60 0RF aspirin 81 mg tablet,delayed release (DR/EC) 81 mg PO BID Qty: 60 0RF acetaminophen 500 mg tablet 1,000 mg PO TID Qty: 90 0RF pantoprazole 40 mg tablet,delayed release (DR/EC) 40 mg PO DAILY Qty: 14 0RF dexamethasone 4 mg tablet 4 mg PO DAILY Qty: 2 0RF docusate sodium 100 mg capsule 100 mg PO BID PRNQty: 28 0RF gabapentin 300 mg capsule 300 mg PO QHS Qty: 14 0RF oxycodone 5 mg tablet 5 mg PO Q4H PRNQty: 18 0RF Continued atorvastatin [Lipitor] 40 mg tablet 40 mg PO DAILY Zyrtec 10 mg capsule 10 mg PO DAILY PRN oxybutynin chloride 5 mg tablet 5 mg PO DAILY albuterol sulfate [Ventolin HFA] 90 mcg/actuation HFA aerosol inhaler 1 puff inhalation Q6H PRN Discharge Instructions Additional Instructions: Total Knee Discharge Instructions Activity: The most important activity is to walk and to work on gentle motion (both flexion and extension). You should try to take short walks a few times a day. It is important that when resting you work on keeping the knee straight. Avoid putting a pillow behind the knee as this will encourage flexion. Work on range of motion exercises as provided by Physical Therapy. - Start outpatient physical therapy within 2 weeks. - You should wear the SEVEN hose on both legs for 2 weeks. You may remove these at night. You may also use any compression sock in place of the SEVEN hose. - Utilize [employer] to review exercises, see videos on exercises and obtain basic information pertaining to your surgery and your recovery. Dressing: Remove the David wrap by 2 days after your surgery and put on the SEVEN stocking given to you from the hospital. Keep the surgical dressing (underneath the DAVID wrap) in place for at least one week. After the first week it may be removed and replaced with light gauze and tape or nothing. The wound and dressing may get wet after 3 days but avoid soaking the dressing or otherwise it will need to be changed. Many people prefer covering the dressing with cling wrap (saran wrap) to minimize it from getting soaked. If it gets wet, just pat dry. If it starts to peel off then it will need to be changed. Medications: - You should take Tylenol and anti-inflammatory Celebrex as your primary pain control medications. If the Celebrex is too expensive or not covered, please call the office for another alternative (Advil/Ibuprofen or Naproxen/Aleve) - You have been prescribed a stronger pain medication Oxycodone for breakthrough pain, take as needed as prescribed. - You have also been prescribed a stomach acid reduction agent Pantoprozole to help reduce stomach acid and reflux. - You have been prescribed Gabapentin to take at night for restlessness and nerve pain. - You will be taking Aspirin 81mg twice a day for DVT prevention unless instructed otherwise. - You have also been prescribed Decadron to take to control post-operative nausea and pain. You will start this tomorrow. - If you have constipation you should take Colace or Miralax (both [id number]). It takes most people 3-4 days to have a bowel movement. Follow-up: 2 weeks If you have any acute concerns or questions, please do not hesitate to contact the office at [phone]. You may contact Dr. Paige with any questions after hours through the hospital at [phone] or on his cell phone at [phone]. Stand Alone Forms: Anesthesia Discharge Inst., Felicias.Nerve Block Instructions, Davie Canales ([facility]), Portal Information Referrals: Ja Paige MD [ [facility] ST[facility]FF [facility]YSICIAN, Orthopaedic Surgical] - 08/20/25 2:00 pm Equipment/Supplies: Walker Activity:: Activity as Tolerated Shower/Bathe:: 72 hours Diet:: As Tolerated Discharge Orders Discharge Orders: Discharge Order (Routine); Ordered 08/08/25 Ordered By: Luisito Purvis DS: Diagnosis Discharge Diagnosis (1) Degenerative joint disease of right knee: Status: Chronic
[2025-08-08] MEDS: ceFAZolin 2 GM/50 ML BAG IVPB (07:35)
[2025-08-08] MEDS: TRANEXAMIC ACID/SOD. CHL. 1,000 MG/100 ML BAG 600 MG IVPB (07:52)
[2025-08-08] MEDS: ROPIvacaine/EPI/CLONIDINE/KET 50 ML SYRINGE IJ (08:34)
--- NOTE | 2025-08-08 08:38 | W.ANESNERVE ---
Nerve Block Single Injection Procedure Date and Time Date Performed: 08/08/25 Procedure Start: 07:24 Location Where Procedure Performed Procedure Location: Day Surgery Unit Reason Performed: Postoperative Analgesia Requesting Provider: Ja Paige Timeout Performed Timeout Performed: Yes Monitoring Used ECG, Blood Pressure, SpO2 and See EMR for corresponding vital signs Sterility Sterility: Hand Hygiene, Surgical Cap, Surgical Mask, Sterile Gloves and Chlorhexidine Sedation Given During Procedure Sedation Given (Indicate Dose Given): Versed IV Dose:: 2mg Patient Mental Status Patient Mental Status: Awake Nerve Block 1st Nerve Block: Laterality: Right Block Type: Adductor Canal Ultrasound Image Saved?: Yes Needle / Catheter Used: 80mm SonoPlex II Local Anesthetic Bolus (Indicate Dose Given): Lidocaine used for local infiltration of skin, Injected in 3-5ml increments after negative blood aspiration, Bupivacaine 0.25% Dose:: 10mL and Exparel Dose:: 10mL Additives (Indicate Dose Given): None Ultrasound: Sterile probe cover and gel used Nerve Stimulator: Supplement to Ultrasound use and No twitch or parasthesia noted < 0.5 mA Paresthesia: None Procedure Tolerated: No Complications and Patient tolerated well Procedure Outcome: Successful Performed By: Ximena Lange
--- NOTE | 2025-08-08 09:03 | W.PM.OP ---
Operative Note Operative Note PRE-OP DIAGNOSIS: Right Knee Osteoarthritis POST-OP DIAGNOSIS: same PROCEDURE: Right Total Knee Replacement SURGEON: Ja Paige SPLICING MACHINE OPERATOR AUTOMATIC: Sukhjinder Purvis ANESTHESIA TYPE: Spinal Refer to Anesthesia Record ESTIMATED BLOOD LOSS: 50 PATHOLOGY: none sent TOURNIQUET TIME: 0 COMPLICATIONS: None Patient was transported to: PACU Patient's condition: stable Implants: 1. Depuy Attune Cementless Cruciate Retaining Femoral Component, Size 5 2. Depuy Attune Cementless Fixed Bearing Tibial Component, Size 4 3. Depuy Attune 5x6mm CR/FB Poly 4. Depuy Attune Patellar Component, Size 35mm Indications: I have seen Chela in clinic for symptoms of knee arthritis, confirmed with radiographic findings. She has exhausted nonoperative methods and was having significant limitations in daily function and desired better function and less pain. I discussed the technical details of a knee replacement. I explained the risks of the procedure to include, but not limited to, bleeding, infection, pain, stiffness, fracture, damage to nerves and vessels, damage to muscles and tendons, loosening, need for repeat procedure, blood clot and cardiopulmonary demise. Despite these risks, Chela elected to proceed. Findings: There was notable arthritis about the patellofemoral compartment. There are also some mild changes seen about the medial tibia and to a lesser extent the medial femur. Procedure Description: Chela was greeted in the preoperative holding area where the correct side was identified and marked. The consent was reviewed with the patient and signed. The history and physical was updated. All questions were answered. Preoperative medications were administered: Acetaminophen 1000mg, Celebrex 400mg, and Gabapentin 300mg. An adductor canal block was then administered by the anesthesia team in the [facility]. She was taken back to the operating room. A spinal anesthestic was then administered. The patient was placed into the supine position on the operating room table. Posts were placed for positioning during the procedure. All bony prominences were well padded. Prophylactic antibiotics in the form of Cefazolin were administered. 1g of Tranxemic Acid was given intravenously within 30 minutes of incision. The right leg was then prepped with Chloraprep and draped in a standard fashion with impervious stockinette. A second prep with Chloraprep was performed prior to application of Iodine impregnated skin protection. A timeout to confirm correct identity, side and site, procedure, allergies, anesthesia, and medical concerns was performed. With the knee in some flexion, a midline incision was made overlying the knee. Full thickness skin flaps were raised once the extensor mechanism was encountered. These were raised medially and laterally. Any bleeding was controlled with electrocautery. Once the extensor mechanism was fully exposed, a medial parapatellar arthrotomy was performed in a flexed position. All bleeding from the arthrotomy and the geniculate arteries was coagulated. A medial subperiosteal peel was performed with electrocautery to the midcoronal plane. The fat pad was removed while keeping the patellar tendon protected. The anterior distal femur synovium was removed for later visualization. The ACL and PCL were resected and the anterior horn of the lateral meniscus was transected. The knee was then flexed with the patella everted. Using a step drill, and based on preoperative templating, the femoral canal was entered. This was done with a step drill without any difficulty. The intramedullary distal femoral cut guide was inserted, set to a 6 degree valgus cut and 9mm cut thickness. The distal femoral cut guide was then held in position and pinned. With the soft tissues protected, the distal cut was performed. This was passed over a few times to ensure a planar cut. I then turned attention to the tibia. The extramedullary guide was placed onto the leg. The distal aspect was slid medial to adjust for position of center of ankle and stay in line with shaft of the tibia. Approximately 5 degrees of posterior slope was kept in the proximal cutting guide. The center of the guide was aligned with the PCL. The stylus was used to assess cut thickness. The medial side, most involved side, was set for a 6mm cut, corresponding to 9 mm laterally. This was then held in position and pinned into place with 2 additional pins and a cross pin for stability. The medial and lateral collateral ligaments were protected and the cut was performed. With this completed, it was assessed and noted to be of appropriate dimensions. The guide was removed. A spacer block was inserted and the knee was brought into extension. The 6mm spacer block provided full extension, without hyperextension and with stability of both the medial and lateral collateral ligaments was assessed. The pins from the femur and the tibia were then removed. The distal femur was then sized. The anterior stylus was placed onto the lateral ridge of the anterior femur. This indicated a size 5 femur. The external rotation of the guide was adjusted to 3 degrees to match the epicondylar axis, perpendicular to Lafferty?s line. The 4-in-1 cutting guide was the placed. The posterior medial femur cut was evaluated and appeared of good thickness. The spacer block was inserted underneath the cutting guide and stability was confirmed in 90 degrees of flexion. An cr wing was used to confirm appropriate position of the anterior cut to avoid notching. This cutting guide was ensured to be flush on the cut surface and then pinned into place with headed pins. While protecting the soft tissues, quad tendon, and collateral ligaments, the anterior and posterior cuts were performed with a saw. The central two pins were removed and the posterior and anterior chamfers were cut next. The notch-cutting guide was placed. This was pinned to lateralize the femoral component as much as possible while keeping it flush on the cut surface. This was then pinned into position. A reciprocating saw was used to make the notch cut. A rasp smoothed the cut surfaces. The medial and lateral menisci were removed. A trial femoral component was then inserted, impacted down to the cut surfaces, and the lug holes were drilled. A provisional trial tibial component was placed and the knee was brought through range of motion. There was noted to be excellent extension and flexion. There was no significant instability. The patella was tracking without thumbs. A size 6mm polyethylene component provided the best range of motion and stability with less than 2mm gapping with medial and lateral stress and full extension without significant hyperextension. The tibial cut surface was fully exposed. The tibia was then sized as a 4. The tibia had been previously marked during trialing to correspond to the center of the tibial component to help with rotation. The trial was aligned to this sukhjinder, approximately rotated to the medial 1/3rd of the tibial tubercle. The trial was pinned into place. The tibia was prepared with a reamer and a keel punch and lug holes. The knee was then brought into extension and the patella was measured as 23mm. Using the patellar clamp and cut guide, this was resected to a flat surface with at least 13mm of thickness remaining. The size 35mm patella fit the best. This was oriented and then clamped into position. The lugs were drilled. The trial components were removed. The final components were opened on the back table. The periosteal and capsular tissues, especially posteriorly, around the knee were then systematically injected with a periarticular cocktail consisting of 246mg of Ropivacaine, 0.5mg of Epinephrine, 0.08mg of Clonidine, and 30mg of Ketorolac, diluted to 100cc. On the back table, with the implants opened. The cement was mixed. One batch of high viscosity cement was prepared with vacuum assistance. After the cement was ready a small amount was placed on the cut surface of the patella and the patellar button was clamped into position and held. The cementless knee components were placed. Starting with the tibial component, the tibia was subluxed anteriorly and the lug holes of the component were lined up. The tibia was then impacted with an impactor and mallet until the tibial component was in contact with the tibia. Then, the femoral component was inserted. The lug holes were aligned and the component was impacted into position. The final polyethylene component was inserted. The knee was irrigated with Surgiphor Betadine solution. This was allowed to sit in the knee for 3 minutes and then it was irrigated out with saline. After the cement had finally cured, approximately 15min, the clamp was removed from the patella and the knee was taken through range of motion. The patella was tracking with a no-thumbs technique. A complete synovectomy was performed around the periphery of the patella. The capsule was then reapproximated with a No. 1 Vicryl at multiple locations. The capsule was finally closed with a No. 2 Stratafix, barbed suture. Deep tissues were then reapproximated with 0 Vicryl and 2-0 Vicryl. The skin was closed with a running 3-0 Monocryl in a subcuticular fashion. This was reinforced with skin glue. A Mepilex silver dressing was applied along with a [id number] TIMMY wrap. A CryoCuff was applied. Chela was transferred to the hospital bed without difficulty an suffering no apparent complication. She has a good prognosis. Physical therapy will start today and without restrictions, weight-bearing as tolerated. Aspirin 81mg BID will be used for DVT prophylaxis. Date of Procedure: 08/08/25
[2025-08-08] MEDS: ePHEDrine 25 MG/5 ML Syringe IVP (09:37)
[2025-08-08] MEDS: oxyCODONE 5 MG TAB PO (10:19)
[2025-08-08] MEDS: Tranexamic Acid 650 MG TAB 1300 MG PO (10:19)
--- NOTE | 2025-08-08 10:43 | PT.INIE ---
PT Notes Visit Reasons: R TKR Physical Therapy Day Surgery Initial Evaluation Date: 08/08/2025 Referring Doctor: MELA Sepulveda PT Orders: PT CONSULT: S/P ortho Surgery Precautions: WBAT through the R LE with AD. Patient Profile/Admitting Diagnosis: Chela is a 60-year-old female patient with degenerative joint disease of the R knee and is S/P R total knee arthroplasty on postoperative day 0 with EBL 50 mL. Adductor canal block done and spinal anesthesia provided intraoperatively. PMHX: All Active Problems Tendonitis of long head of biceps brachii of right shoulder (Acute) Bursitis of right shoulder (Acute) Trochanteric bursitis, left hip (Acute) Degenerative joint disease of left hip (Chronic) History of total right hip replacement (Acute 10/27/23) Smoker (Acute) PTSD (post-traumatic stress disorder) (Acute) Prediabetes (Acute) HLD (hyperlipidemia) (Acute) WHIT (generalized anxiety disorder) (Acute) Degenerative joint disease of right knee (Chronic) Injection: 10/09/24; 10/27/2023 Medical History Hx of fracture of leg History of echocardiogram 06/02/19 Stress incontinence in female Seizure It's a weird warming/cooling sensation I'm blinking but I'm blind, and I get this warm sensation and i get this shaking sensation, and then it goes away, I'm completely coherent. Last one was over a year ago Major depressive disorder Chronic low back pain Cataract Surgical History History of bladder surgery H/O cervical polypectomy 11/18/18 History of cataract surgery dos 05/27/2000 Social History/Home Situation: Lives with daughter in a private home with 6-7 steps to enter her that leads to [place] and another 6 or 7 steps into the house, rail on 1 side. Currently on disability. 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 Equipment Owned/DME: None Subjective: Reported pain at 3?4/10 and in the front of the knee and the calf area on the right side. The right headache, chest pain, and lightheadedness throughout session. Aware of minimal buckling of the right knee and is able to stabilize self as needed using front wheeled walker. Objective: General Observation: TIMMY wraps to right LE. Cryocuff to right knee. TDS the left leg and foot. Mental Status: A and O x 4 Pain: 3-4/10 in R knee and calf that subsided with mobility performance ROM: Right Lower Extremity: Hip flexion WFL. Hip abduction WFL. Knee flexion 20 degrees to 100 degrees. Knee extension -20 degrees. Ankle dorsiflexion WFL. Ankle plantarflexion WFL. Left Lower Extremity: Hip flexion WFL. Hip abduction WFL. Knee flexion WFL. Ankle dorsiflexion WFL. Ankle plantarflexion WFL. Strength: Right Lower Extremity: Hip flexors 5/5. Hip abductors 5/5. Knee flexors 5/5. Knee extensors 5/5. Ankle dorsiflexors 5/5. Ankle plantarflexors 5/5. Left Lower Extremity:Hip flexors 4/5. Hip abductors 4/5. Knee flexors 3-/5. Knee extensors 3-/5. Ankle dorsiflexors 5/5. Ankle plantarflexors 5/5. Sensation: Intact as to pain and light pressure in B LE Bed Mobility/Transfers: Minimal cueing provided for use of B hands as needed for support, movement sequence, AD management, and posture to reduce fall risk and minimize pain report Sit to stand stand by assist Stand to sit stand by assist with FWW Bed to chair stand by assist with FWW Gait: Facilitate safe and correct performance of level surface ambulation covering a distance of 150 feet using front wheeled walker with standby assist of PT and minimal verbal cueing for correct movement sequence, AD management, controlled knee extension on the right at mid stance to minimize buckling, and posture to reduce fall risk and minimize pain report. Stairs: Guided patient with safe and correct negotiation of 6 x 4 inch steps and 4 x 6 inch steps while holding onto bilateral rails initially and then holding onto just 1 rail and using a single-point cane with step to gait pattern requiring only standby assist with minimal verbal cueing for increased knee flexion on the right side during each ascent, limb movement sequence, hand placement AD management, and posture to minimize pain reported reduce fall risk. Balance: Static Sitting: Normal Dynamic Sitting: Normal Static Standing: Fair Dynamic Standing: Fair Special Tests: Mobility Limitations Standardized Measure [facility] AM-PAC 6 clicks Basic Mobility Inpatient Short Form: Raw Score: 23 CMS Score: 11% deficit Informed Consent/Education: Patient instructed in purpose of PT consult. Packet containing TKA exercise protocol has been given to patient. Education and training on initial set of exercises that can be done at home have been completed with patient. Trained patient with correct performance of exercises below to maximize motor control, joint flexibility, soft tissue extensibility of the R knee musculature: Access Code: [email or web address] URL: [email or web address] Date: 08/08/2025 Prepared by: Millicent Keene Exercises - Supine Quad Set - 1 x daily - 7 x weekly - 1 sets - 10 reps - 5 hold - Supine Heel Slide - 1 x daily - 7 x weekly - 1 sets - 10 reps - 5 hold - Supine Ankle Pumps - 1 x daily - 7 x weekly - 1 sets - 10 reps - 5 hold - Small Range Straight Leg Raise - 1 x daily - 7 x weekly - 1 sets - 10 reps - 5 hold - Seated March - 1 x daily - 7 x weekly - 1 sets - 10 reps - 5 hold Assessment: Patient required the use of a front wheeled walker for mobility ADL performance to maximize independence and reduce fall risk. Had 3 epsiodes of mild R knee buckling that did not result to loss of balance. Patient presents with clinical signs and symptoms consistent with current/admitting diagnoses that have resulted to mobility limitations, gait instability, generalized weakness, and impairment of motor control as demonstrated by the following impairment level findings: 1. Decreased strength to R knee major muscle groups 2. Impaired standing balance 3. Limitation of joint range of motion in R knee Impairments are contributing to the following functional limitations: 1. Inability to safely ambulate without assistive device 2. Increase completion time for mobility ADL performance 3. Increased fall risk Patient is assessed as a 16953 moderate complexity based on the following: History: 60-year-old female with impairment level findings, functional limitations, and past medical history as indicated above Examination: Demonstrable impairment in strength, balance, and mobility level with underlying impairments and functional limitations as documented above Presentation: Evolving Decision Makin moderate complexity Goals: N/A. PT evaluation and 1-2 treatment sessions only for functional mobility training using recommended AD and for HEP instruction. Plan of Care/Treatment Plan: N/A. PT evaluation and 1-2 treatment session only for functional mobility training using recommended AD and for HEP instruction. DISCHARGE RECOMMENDATIONS: Home when medically cleared by orthopedic surgeon. Recommend outpatient PT services in order to optimize functional mobility outcomes and facilitate return to independent community ambulation without an assistive device. TREATMENT CODE/TIME: 08347 x 20 minutes for 1 unit (10:43?11:03). Thank you for the opportunity to participate in the care of this patient. Millicent Keene PT, DPT, CLT [facility] [place], [place]
--- NOTE | 2025-08-08 10:53 | W.ANESPOSTOP ---
Postoperative Evaluation Date, Time and Location Date Performed: 08/08/25 Time Performed: 09:30 Patient Location: Day Surgery Unit Vital Signs Most Recent Imported Vital Signs: Most Recent Vital Signs Temp Pulse Resp BP Pulse Ox 36.4 C L 73 16 159/82 H 99 08/08/25 10:40 08/08/25 10:40 08/08/25 10:40 08/08/25 10:40 08/08/25 10:40 Pain Score Most Recent Pain Score: Most Recent Pain Score Pain Level 4 08/08/25 10:40 Assessment Mental Status: Arousable with meaningful communication Airway and Respiratory Function: Patent airway with normal (patient baseline) respiratory exam Cardiovascular Function: Hemodynamically Stable Hydration Status: Adequately Hydrated Nausea & Vomiting: No Nausea or Vomiting Pain: Pt. Denies Any Pain Peripheral Nerve Block: Patient did not receive a nerve block
== END 2025-08-08 12:10 | disposition home or self-care (01) ==
PROVIDERS: PCP Family Medicine; Visit Provider Student in an Organized Health Care Education/Training Program
PROC: (CPT 27447; principal; 2025-08-08 07:30)
DX: M17.11 Unilateral primary osteoarthritis, right knee (principal)
CPT/HCPCS: 27447; 64447; 97162; C1776; J0665; J0666; J0690; J2003; J2371; J2401; J2405; J2704